=== PATIENT | female | born 2000 | race Caucasian/White ===

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

== ENCOUNTER 2020-08-19 15:47 | Emergency (ER) | payer OTHER ==
[~2020-08-19] VITALS: Ht 153.7 cm; Wt 55.3 kg
[2020-08-19 15:54] VITALS: BP 119/83
--- NOTE | 2020-08-19 16:17 | NUR ---
PT TAKEN TO BED 9. AMBULATORY WITH STEADY GAIT.
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
--- NOTE | 2020-08-19 17:09 | NUR ---
Patient discharged with v/s stable. Written and verbal after care instructions given and explained. Patient alert, oriented and verbalized understanding of instructions. Ambulatory with steady gait. All questions addressed prior to discharge. ID band removed. Patient advised to follow up with PMD. Rx of acetaminophen 500mg 1-2 tabs PO PRN given. Patient educated on indication of medication including possible reaction and side effects. Opportunity to ask questions provided and answered.
[2020-08-19 17:14] VITALS: BP 119/83
== END 2020-08-19 17:09 | disposition home or self-care (01) ==
LOC: MED 15:47
DX: S16.1XXA Strain of muscle, fascia and tendon at neck level, initial encounter (principal); S60.211A Contusion of right wrist, initial encounter; S60.812A Abrasion of left wrist, initial encounter; V89.2XXA Person injured in unspecified motor-vehicle accident, traffic, initial encounter; Y93.89 Activity, other specified; Y92.89 Other specified places as the place of occurrence of the external cause; Y99.8 Other external cause status
CPT/HCPCS: 99282

== ENCOUNTER 2024-05-09 09:17 | Emergency (ER) | payer OTHER ==
[~2024-05-09] VITALS: Ht 152.4 cm; Wt 61.2 kg
[2024-05-09 09:52] VITALS: BP 122/81; PULSE 88; RESP 16; TEMP 98.3; O2SAT 99
[2024-05-09] MEDS ORDERED: LIDO4CRE18 TP (10:15)
[2024-05-09] MEDS ORDERED: MIRABULK PO (10:15)
== END 2024-05-09 10:22 | disposition home or self-care (01) ==
LOC: MED 09:17
DX: K60.2 Anal fissure, unspecified (principal); R19.7 Diarrhea, unspecified; Z79.899 Other long term (current) drug therapy
CPT/HCPCS: 99282